=== PATIENT | male | born 1955 | race Caucasian/White ===

== ENCOUNTER 2019-08-19 13:01 | Outpatient (CLI) | payer OTHER ==
--- NOTE | 2019-08-19 14:11 | Cat Scan Report ---
CT abdomen pelvis wo con INDICATION / CLINICAL INFORMATION: NEPHROLITHIASIS/CHOLELITHIASIS. TECHNIQUE: All CT scans at this location are performed using CT dose reduction for ALARA by means of automated e xposure control. COMPARISON: None available. FINDINGS: No acute disease is seen in either lower lung. ABDOMEN: Multiple large calcified gallstones. The gallbladder is nondistended and there is no biliary dilatati on. The liver, spleen and pancreas are normal. Bilateral small intrarenal calculi are all less than 5 mm in diameter. There are multiple right renal cysts. No hydronephrosis. No mesenteric or retroperitoneal adenopathy. No adrenal lesions. The small bowel is normal. Pelvis: The appendix is normal. No colon abnormalities. No dependent fluid collections or inflammatory changes are seen in the pelvis. No skeletal abnormality IMPRESSION: 1. Cholelithiasis without CT evidence of acute cholecystitis. 2. Bilateral nephrolithiasis, no hydronephrosis. Signer Name: Salvatore Lind MD Signed: 08/19/2019 2:06 PM Workstation Name: [id number]
--- NOTE | 2019-08-19 17:17 | Cat Scan Report ---
CT LUMBAR SPINE WITHOUT CONTRAST INDICATION / CLINICAL INFORMATION: LOW BACK PAIN. TECHNIQUE: Axial CT images were obtained through the lumbar spine. Sagittal and coronal reformatted images were produced. All CT scans at this location are performed using CT dose reduction for ALARA by means of a utomated exposure control. COMPARISON: None available. FINDINGS: TRAUMA:There is no indication of fracture or traumatic subluxation. ALIGNMENT: No significant abnormality. VERTEBRAE: Multifocal anterior osteophyte formation is noted. Posterior osteophyte is evident at the L2-3 level. DISC SPACES: Loss of disc height and disc vacuum phenomenon is observed at the L2-3 level. LEVEL BY LEVEL ANALYSIS: L1-2: Chronic Schmorl's node deformities observed at inferior endplate L1. No additional abnormality. L2-3: Loss of disc height and disc vacuum phenomena are noted. Anterior osteophyte formation is obser cong. Posterior osteophyte lateralizes towards the left. Central spinal canal and neuroforamina are ad equately maintained. L3-4: Anterior osteophyte and mild posterior osteophyte formation is observed. Central spinal canal a nd neuroforamina are adequately maintained. L4-5: Small posterior left lateral osteophyte formation contributes to mild left L4 nerve root neurof oraminal narrowing. No additional abnormality. L5-S1: Mild loss of disc height is noted. Posterior osteophyte is demonstrated without significant th ecal sac deformity. Central spinal canal is adequate in size. Loss of disc height, facet arthropathy and posterior right lateral osteophyte formation contribute to moderate right-sided and mild left-bianka ed neuroforaminal stenosis at the L5 nerve root level. SPINAL CANAL: No significant abnormality. SACRUM:No significant abnormality of the visualized sacrum. Bilateral SI joint vacuum phenomena is no sola. Mild anterior osteophyte formation is observed at the left SI joint. Sacroiliac joints are not i ncluded in their entirety. PARASPINAL SOFT TISSUES: Please refer to CT abdomen pelvis for description of the paraspinous soft ti ssues. IMPRESSION: 1. Mild degenerative changes at multiple levels. These are most pronounced at the L2-3 level where lo ss of disc height and disc vacuum phenomena are demonstrated. Signer Name: Pb Larose MD Signed: 08/19/2019 5:12 PM Workstation Name: [id number]
== END 2019-08-19 13:02 | disposition home or self-care (01) ==
LOC: CT 13:01
PROVIDERS: ATTEND Internal Medicine
DX: M47.816 Spondylosis without myelopathy or radiculopathy, lumbar region (principal); K80.20 Calculus of gallbladder without cholecystitis without obstruction; N20.0 Calculus of kidney
CPT/HCPCS: 72131; 74176